=== PATIENT | male | born 1975 | race Caucasian/White ===

== ENCOUNTER 2019-12-14 17:19 | Outpatient (REF) | payer OTHER, SELFPAY | END 2019-12-14 17:20 | disposition home or self-care (01) | LOC: HO.LAB 17:19 | PROVIDERS: PCP Nurse Practitioner Family; Visit Provider Internal Medicine | DX: Z20.828 Contact with and (suspected) exposure to other viral communicable diseases (principal) | CPT/HCPCS: 87635 ==

== ENCOUNTER 2020-05-26 10:12 | Outpatient (REF) | payer OTHER, SELFPAY ==
[2020-05-26 11:10] LABS: MANUAL DIFF FLAG NO
[2020-05-26 11:16] LABS: Basophils Percent Auto 0.5 % (0-2); Eosinophils Absolute Auto 0.2 X10*3/uL (0.0-0.4); Eosinophils Percent Auto 2.6 % (0-4); Hemoglobin 16.7 g/dl (14.0-18.0); Imm Gran Abs Auto 0.02 X10*3/uL (0.00-0.03); Imm Gran Pct Auto 0.3 % (0.0-0.4); Lymphocytes Absolute Auto 1.5 X10*3/uL (1.2-4.9); Lymphocytes Percent Auto 25.3 % (20-40); Mean Corpuscular HGB Conc 33.4 g/dl (31.0-36.0); Mean Corpuscular Hemoglobin 29.5 pg (27.0-33.0); Mean Corpuscular Volume 88.3 fL (80-98); Mean Platelet Volume 10.5 fL (9.4-12.4); Monocytes Absolute Auto 0.6 X10*3/uL (0.1-1.2); Monocytes Percent Auto 9.2 % (2-11); Neutrophils Absolute Auto 3.8 X10*3/uL (2.0-8.3); Neutrophils Percent Auto 62.1 % (45-73); Platelet Count 283 X10*3/uL (160-400); Red Blood Count 5.66 X10*6/uL (4.60-5.80); Red Cell Distribution Width 11.9 % (11.0-16.0); White Blood Count 6.1 X10*3/uL (4.8-10.8)
[2020-05-26 11:44] LABS: Alanine Aminotransferase 30 U/L (0-40); Albumin Level 4.1 g/dL (3.5-5.0); Alkaline Phosphatase 99 U/L (39-117); Anion Gap 14 (12-20); Aspartate Amino Transferase 20 U/L (5-37); Bilirubin Total 0.6 mg/dL (0.0-1.0); Blood Urea Nitrogen 13 mg/dL (9-16); Carbon Dioxide 28 mmol/L (22-29); Chloride 105 mmol/L (96-108); Estimated Glomerular Filt Rate > 60; Glucose Fasting 84 mg/dL (60-99); Lipase 19 U/L (8-78); Potassium 4.6 mmol/L (3.3-5.1); Sodium 142 mmol/L (135-145); Total Protein 6.6 g/dL (6.5-8.0)
== END 2020-05-26 10:13 | disposition home or self-care (01) ==
LOC: HO.HMGCLDS 10:12
PROVIDERS: PCP Nurse Practitioner Family; Visit Provider Hospitalist
DX: R10.11 Right upper quadrant pain (principal)
CPT/HCPCS: 36415; 80053; 83690; 85025

== ENCOUNTER 2020-05-31 09:38 | Outpatient (REF) | payer OTHER, SELFPAY ==
--- NOTE | ~2020-05-31 | US_ITS ---
EXAMINATION: US ABDOMEN LIMITED CLINICAL INFORMATION: Right upper quadrant pain. COMPARISON: None TECHNIQUE: Real-time imaging of the right upper quadrant abdominal viscera. FINDINGS: PANCREAS: The pancreas is homogeneous in echotexture. LIVER: The liver is normal in size. The liver contour is normal. The liver is mildly heterogenous. No focal hepatic lesion. There is no intrahepatic biliary duct dilatation seen. GALLBLADDER: Normal. The gallbladder is physiologically distended without evidence of stones, sludge, polyps, wall thickening or pericholecystic fluid. COMMON BILE DUCT: Normal in caliber measuring 0.39 cm in diameter. RIGHT KIDNEY: Normal. No hydronephrosis. No renal calculi or focal parenchymal lesions. The kidney measures 11.0 cm in maximum dimension. FREE FLUID: None. US/US abdomen limited IMPRESSION: Mildly heterogeneous liver without any focal lesion. The visualized pancreas, gallbladder, CBD, and the right kidney are unremarkable.
== END 2020-05-31 09:39 | disposition home or self-care (01) ==
LOC: HO.HMGCX 09:38
PROVIDERS: Visit Provider Hospitalist
DX: R10.11 Right upper quadrant pain (principal)
CPT/HCPCS: 76705

== ENCOUNTER → 2020-06-08 10:38 | Outpatient (REF) | payer OTHER, SELFPAY ==
--- NOTE | ~2020-06-08 | NM_ITS ---
EXAMINATION: HIDA SCAN WITH CCK CLINICAL INFORMATION: Right upper quadrant pain. COMPARISON: Ultrasound 05/31/2020. TECHNIQUE: 5 mCi technetium mebrofenin and 1.8 mcg CCK given after one hour. Images obtained over the upper abdomen. FINDINGS: Uptake by the liver is felt to be within normal limits. Ductal activity by 11 minutes. Bowel activity by 14 minutes. Gallbladder activity by 39 minutes. Subsequent injection of CCK demonstrates an ejection fraction of 69%. NM/NM hepatobiliary w pharm IMPRESSION: Gallbladder ejection fraction at 69%. Therefore no scintigraphic evidence for gallbladder dyskinesis.
== END ==
LOC: HO.NUCMED 10:38
PROVIDERS: Visit Provider Hospitalist
DX: R10.11 Right upper quadrant pain (principal)
CPT/HCPCS: 78227; A9537; J2805

== ENCOUNTER 2020-06-26 11:30 | Emergency (ER) | payer OTHER, SELFPAY ==
--- NOTE | ~2020-06-26 | CT_ITS ---
EXAMINATION: CT ABDOMEN AND PELVIS WITH CONTRAST CLINICAL INFORMATION: Diffuse abdominal pain. Diarrhea. COMPARISON: None. TECHNIQUE: Contiguous axial thin section helical images of the abdomen and pelvis were performed following the administration of 85 mL of intravenous Omnipaque 350. The data set was reformatted in the coronal and sagittal planes and reviewed on an independent workstation. DLP: 625 mGy-cm. FINDINGS: There is mild dependent bibasilar atelectasis. The visualized lung bases are otherwise clear. The visualized portions of the heart are unremarkable. The liver is of normal size and attenuation without focal lesions nor intrahepatic biliary ductal dilation. A normal gallbladder is identified. There is no wall thickening or discernible pericholecystic fluid. The spleen, pancreas, adrenal glands are unremarkable. Both kidneys are of normal size and attenuation without hydronephrosis or nephrolithiasis. Following the administration of IV contrast, prompt symmetric nephrograms are displayed. There is no abdominal free fluid. There is neither mesenteric nor retroperitoneal lymphadenopathy. Normal unopacified loops of small and large bowel are identified. A normal appendix is identified. There is no pelvic free fluid. The urinary bladder is unremarkable. There is neither pelvic nor inguinal lymphadenopathy. Bone windows: Neither sclerotic nor lytic bone lesions are identified. CT/CT abdomen pelvis w con IMPRESSION: No acute abdominal or pelvic inflammatory or infectious processes. Automated exposure control (Care Dose) Adjustment of the mA and/or kv according to patient size (this includes techniques or standardized protocols for targeted exams where dose is matched to indication / reason for exam; i.e. extremities or head).
[2020-06-26 11:51] VITALS: BP 141/92; PULSE 68; RESP 18; TEMP 36.7; O2SAT 99; BMI 25.7
--- NOTE | 2020-06-26 12:24 | ED_ITS ---
HPI - Abdominal Pain General Chief Complaint: Abdominal Pain Stated Complaint: abd pain Time Seen by Provider: 06/26/20 12:12 Source: patient Mode of arrival: ambulatory Limitations: no limitations History of Present Illness HPI narrative: 44-year-old male previously healthy here with intermittent abdominal pain for the last 3-4 weeks. Patient tells me that his pain comes and goes and is not worsened by eating. He has suffered with chronic diarrhea after eating greasy or fatty foods but he does not have diarrhea associated with this abdominal pain. No nausea or vomiting, fevers, chills, urinary symptoms. He was seen at urgent care on May 31 and had an abdominal ultrasound due to complaints of right upper abdominal pain. This was negative for acute coli. Due to persistent pain he had an outpatient HIDA scan on June 08 which was also negative for acute coli. Since then the patient tells me that his abdominal pain seems more diffuse. Today it was quite severe and so he went back to urgent care and was referred to the emergency department for further evaluation. He denies bloody or black st ools. elicited complaint: abdominal pain Related Data Previous Rx's Medication Instructions Recorded dextroamphetamine-amphetamine ER 10 mg PO DAILY 30 Days #30 cap 02/04/20 10 mg 24hr capsule,extend release dicyclomine 10 mg PO TID PRN #10 cap 06/26/20 Allergies Allergy/AdvReac Type Severity Reaction Status Date / Time No Known Allergies Allergy Verified 06/26/20 11:51 Review of Systems Review of Systems Yes all other systems are reviewed and are negative Constitutional: Reports no additional constitutional complaints, Denies body ache(s), Denies chills, Denies fever(s), Denies headache(s) and Denies weakness Eyes: Reports no additional eye complaints and Denies change in vision Reports system reviewed and no additional complaints, except as documented, Denies dizziness, Denies headache(s), Denies nasal congestion, Denies nasal discharge and Denies neck pain Cardiovascular: Reports no additional cardiovascular complaints, Denies chest pain, Denies leg edema and Denies dyspnea Respiratory: Reports no additional respiratory complaints, Denies cough and Denies dyspnea Gastrointestinal: Reports no additional gastrointestinal complaints, Reports abdominal pain, Denies diarrhea, Denies nausea and Denies vomiting Genitourinary: Denies urinary incontinence Musculoskeletal: Reports no additional musculoskeletal complaints, Denies back pain, Denies arthralgias, Denies joint swelling, Denies neck pain, Denies numbness and Denies tingling Skin/Breast: Reports system reviewed and no additional complaints, except as docu and Denies rash Reports system reviewed and no additional complaints, except as documented, Denies Abnormal speech present, Denies dizziness, Denies headache(s), Denies numbness, Denies tingling and Denies weakness Physical Exam Vital Signs: Vital Signs: Last Vital Signs Temp 97.6 F 06/26/20 12:43 Pulse 58 06/26/20 12:43 Resp 18 06/26/20 12:43 BP 134/85 06/26/20 12:43 Pulse Ox 98 06/26/20 12:43 Body Mass Index 25.7 Const: General: cooperative, healthy appearing, comfortable and no acute distress Orientation/consciousness: patient oriented x3 Limitations: no li mitations HENMT: Head: Yes normal to inspection Ears: hearing grossly normal bilaterally General nose exam: Normal external nose present Face and sinus: Yes normal facial exam Mouth: Normal oral and palatal mucosa present Throat: Yes posterior oropharynx normal Eyes: General: appearance normal, both eyes and all related structures Pupils: Equal, round and reactive pupils present Neck: Neck: Yes normal visual inspection Chest: Chest palpation & inspection: normal inspection of the chest Resp: Effort & Inspection: normal respiratory effort Auscultation: clear to auscultation bilaterally Cardio: Rate: regular rate Rhythm: regular rhythm Peripheral pulses: Peripheral pulses 2+ throughout GI: Inspection: Yes normal to inspection Palpation (GI): Soft to palpation and Tenderness to palpation present (GI) (Moderate diffuse tenderness. No rebound. Positive guarding) Auscultation: normal bowel sounds Back/Spine/Pelvis: Thoracic/Lumbar Spine: thoracic and lumbar spine normal to inspection Skin: General skin exam: no rashes or lesions noted Neuro: General: patient oriented x3, no focal motor deficits and normal sensation to monofilament Cranial nerves: Yes Equal, round and reactive p upils present Cognition (Neuro): normal cognition Speech: No Abnormal speech present Gait exam (Neuro): Normal gait present Motor exam (neuro): 5/5 motor strength present throughout Extrem: General: Yes normal to inspection Course Course Course Narrative: 44 yo intermittent abdominal pain for greater than 4 weeks with intermittent diarrhea. Worked up outpatient with abdominal ultrasound which was negative and a HIDA scan which was negative. Patient tells me he initially had pain more in the right abdomen but now seems to be more diffuse. No associated nausea, vomiting, fevers, chills, bloody diarrhea. On exam has mild-diffuse mod tenderness with no rebound or guarding. Will check labs, UA, CT a/P. 1530-labs, urine and CT unremarkable. Patient has had this pain for greater than 4 weeks with associated diarrhea. ?underlying IBS component. He is feeling improved and is tolerating p.o. when I reexamined him. We discussed referral to GI for further imaging/w/u as deemed appropriate. Reviewed worrisome signs and symptoms of when to return to the emergency department including severe abdominal pain, to a more vomiting episodes, bloody diarrhea. Comfortable discharge home. MDM - Abdominal Pain Medical Records Attestation: I reviewed the patient's medical records. Lab Data Attestation: I reviewed the patient's lab results. Result diagrams: 06/26/20 12:48 06/26/20 12:48 Labs: Lab Results 06/26/20 06/26/20 06/26/20 Range/Units 12:12 12:48 12:48 WBC 5.4 (4.8-10.8) X10*3/uL RBC 5.33 (4.60-5.80) X10*6/uL Hgb 16.0 (14.0-18.0) g/dl Hct 46.8 (42-52) % MCV 87.8 (80-98) fL MCH 30.0 (27.0-33.0) pg MCHC 34.2 (31.0-36.0) g/dl RDW 12.0 (11.0-16.0) % Plt Count 241 (160-400) X10*3/uL MPV 10.2 (9.4-12.4) fL Immature Gran % (Auto) 0.4 (0.0-0.4) % Neut % (Auto) 61.6 (45-73) % Lymph % (Auto) 24.5 (20-40) % [place] % (Auto) 9.0 (2-11) % Eos % (Auto) 3.9 (0-4) % Baso % (Auto) 0.6 (0-2) % Lymph # (Auto) 1.3 (1.2-4.9) X10*3/uL [place] # (Auto) 0.5 (0.1-1.2) X10*3/uL Eos # (Auto) 0.2 (0.0-0.4) X10*3/uL Baso # (Auto) 0.0 (0.0-0.2) X10*3/uL Abs Immat Gran (auto) 0.02 (0.00-0.03) X10*3/uL Absolute Neuts (auto) 3.3 (2.0-8.3) X10*3/uL Absolute Nucleated RBC 0.000 (0.0-0.012) X10*3/uL Nucleated RBC % (auto) 0.0 (0.0-0.2) /100WBC PT 11.9 (10.8-13.0) SEC INR 1.0 (0.9-1.1) Sodium (135-145) mmol/L Potassium (3.3-5.1) mmol/L Chloride (96-108) mmol/L Carbon Dioxide (22-29) mmol/L Anion Gap (12-20) BUN (9-16) mg/dL Creatinine (0.5-1.4) mg/dL Estim Creat Clear Calc Estimated GFR Random Glucose (60-115) mg/dL Calcium (8.4-10.2) mg/dL Magnesium (1.6-2.6) mg/dL Total Bilirubin (0.0-1.0) mg/dL Direct Bilirubin (0.0-0.5) mg/dL AST (5-37) U/L ALT (0-40) U/L Alkaline Phosphatase (39-117) U/L Total Protein (6.5-8.0) g/dL Albumin (3.5-5.0) g/dL Lipase (8-78) U/L Urine Color YELLOW Urine Appearance CLEAR Urine pH 6.0 (5.0-8.0) Ur Specific [place] 1.025 (1.005-1.025) Urine Protein NEG (NEG-TRACE) MG/DL Urine Glucose (UA) NEG (NEG) MG/DL Urine Ketones NEG (NEG) MG/DL Urine Blood NEG (NEG) Urine Nitrite NEG (NEG) Ur Leukocyte Esterase NEG (NEG) 04/26/21 Range/Units 12:48 WBC (4.8-10.8) X10*3/uL RBC (4.60-5.80) X10*6/uL Hgb (14.0-18.0) g/dl Hct (42-52) % MCV (80-98) fL MCH (27.0-33.0) pg MCHC (31.0-36.0) g/dl RDW (11.0-16.0) % Plt Count (160-400) X10*3/uL MPV (9.4-12.4) fL Immature Gran % (Auto) (0.0-0.4) % Neut % (Auto) (45-73) % Lymph % (Auto) (20-40) % [place] % (Auto) (2-11) % Eos % (Auto) (0-4) % Baso % (Auto) (0-2) % Lymph # (Auto) (1.2-4.9) X10*3/uL [place] # (Auto) (0.1-1.2) X10*3/uL Eos # (Auto) (0.0-0.4) X10*3/uL Baso # (Auto) (0.0-0.2) X10*3/uL Abs Immat Gran (auto) (0.00-0.03) X10*3/uL Absolute Neuts (auto) (2.0-8.3) X10*3/uL Absolute Nucleated RBC (0.0-0.012) X10*3/uL Nucleated RBC % (auto) (0.0-0.2) /100WBC PT (10.8-13.0) SEC INR (0.9-1.1) Sodium 138 (135-145) mmol/L Potassium 4.1 (3.3-5.1) mmol/L Chloride 104 (96-108) mmol/L Carbon Dioxide 28 (22-29) mmol/L Anion Gap 10 L (12-20) BUN 15 (9-16) mg/dL Creatinine 1.10 (0.5-1.4) mg/dL Estim Creat Clear Calc 98.8 Estimated GFR > 60 Random Glucose 93 (60-115) mg/dL Calcium 8.7 (8.4-10.2) mg/dL Magnesium 2.2 (1.6-2.6) mg/dL Total Bilirubin 0.6 (0.0-1.0) mg/dL Direct Bilirubin 0.2 (0.0-0.5) mg/dL AST 23 (5-37) U/L ALT 37 (0-40) U/L Alkaline Phosphatase 101 (39-117) U/L Total Protein 6.1 L (6.5-8.0) g/dL Albumin 3.8 (3.5-5.0) g/dL Lipase 25 (8-78) U/L Urine Color Urine Appearance Urine pH (5.0-8.0) Ur Specific [place] (1.005-1.025) Urine Protein (NEG-TRACE) MG/DL Urine Glucose (UA) (NEG) MG/DL Urine Ketones (NEG) MG/DL Urine Blood (NEG) Urine Nitrite (NEG) Ur Leukocyte Esterase (NEG) Imaging Data CT scan - abdomen: Attestation: I personally reviewed and interpreted this imaging study as follows: Radiologist's impression: EXAMINATION: CT ABDOMEN AND PELVIS WITH CONTRAST CLINICAL INFORMATION: Diffuse abdominal pain. Diarrhea. COMPARISON: None. TECHNIQUE: Contiguous axial thin section helical images of the abdomen and pelvis were performed following the administration of 85 mL of intravenous Omnipaque 350. The data set was reformatted in the coronal and sagittal planes and reviewed on an independent workstation. DLP: 625 mGy-cm. FINDINGS: There is mild dependent bibasilar atelectasis. The visualized lung bases are otherwise clear. The visualized portions of the heart are unremarkable. The liver is of normal size and attenuation without focal lesions nor intrahepatic biliary ductal dilation. A normal gallbladder is identified. There is no wall thickening or discernible pericholecystic fluid. The spleen, pancreas, adrenal glands are unremarkable. Both kidneys are of normal size and attenuation without hydronephrosis or nephrolithiasis. Following the administration of IV contrast, prompt symmetric nephrograms are displayed. There is no abdominal free fluid. There is neither mesenteric nor retroperitoneal lymphadenopathy. Normal unopacified loops of small and large bowel are identified. A normal appendix is identified. There is no pelvic free fluid. The urinary bladder is unremarkable. There is neither pelvic nor inguinal lymphadenopathy. Bone windows: Neither sclerotic nor lytic bone lesions are identified. CT/CT abdomen pelvis w con IMPRESSION: No acute abdominal or pelvic inflammatory or infectious processes. Automated exposure control (Care Dose) Adjustment of the mA and/or kv according to patient size (this includes techniques or standardized protocols for targeted exams where dose is matched to indication / reason for exam; i.e. extremities or head). Discharge Plan Discharge Clinical Impression: Abdominal pain Qualifiers: Abdominal location: generalized Qualified Code(s): R10.84 - Generalized abdominal pain Patient Disposition: Home, Self-Care Instructions: Abdominal Pain (ED) Additional Instructions: Your CT scan today showed no acute finding Follow up with GI as discussed Prescriptions: New dicyclomine 10 mg capsule 10 mg PO TID PRN (Reason: muscle spasm) Qty: 10 RF: 0 No Action dextroamphetamine-amphetamine [Adderall XR] 10 mg capsule,extended release 2 4hr 10 mg PO DAILY 30 Days Qty: 30 RF: 0 Referrals: Rachel Blue MD [Physician] - 2 days Stand Alone Forms: Work/School Release [facility] Past Medical History Attestation statement: The following information was validated with the patient. Source: old records reviewed and nursing notes reviewed Medical History ADHD Social History Social History Advance Directives: No Advance Directives Information Provided: No
[2020-06-26 12:38] LABS: Glucose Urine UA NEG (NEG); Leukocyte Esterase Urine NEG (NEG); Nitrite Urine NEG (NEG); Specific Gravity - Urine 1.025 (1.005-1.025); Urine Blood NEG (NEG); Urine Ketones NEG (NEG); Urine Protein NEG (NEG-TRACE)
[2020-06-26 12:39] LABS: Appearance Urine CLEAR; Color Urine YELLOW
[2020-06-26 12:43] VITALS: BP 134/85; PULSE 58; RESP 18; TEMP 36.4; O2SAT 98
[2020-06-26 12:53] LABS: MANUAL DIFF FLAG NO
[2020-06-26 12:55] LABS: Basophils Percent Auto 0.6 % (0-2); Eosinophils Absolute Auto 0.2 X10*3/uL (0.0-0.4); Eosinophils Percent Auto 3.9 % (0-4); Hematocrit 46.8 % (42-52); Imm Gran Abs Auto 0.02 X10*3/uL (0.00-0.03); Imm Gran Pct Auto 0.4 % (0.0-0.4); Lymphocytes Absolute Auto 1.3 X10*3/uL (1.2-4.9); Lymphocytes Percent Auto 24.5 % (20-40); Mean Corpuscular HGB Conc 34.2 g/dl (31.0-36.0); Mean Corpuscular Volume 87.8 fL (80-98); Mean Platelet Volume 10.2 fL (9.4-12.4); Monocytes Absolute Auto 0.5 X10*3/uL (0.1-1.2); Neutrophils Absolute Auto 3.3 X10*3/uL (2.0-8.3); Neutrophils Percent Auto 61.6 % (45-73); Platelet Count 241 X10*3/uL (160-400); Red Blood Count 5.33 X10*6/uL (4.60-5.80); White Blood Count 5.4 X10*3/uL (4.8-10.8)
[2020-06-26] MEDS: Morphine Sulfate 4 MG/ML CARTRIDGE IVPUSH (12:59)
[2020-06-26 13:01] LABS: Prothrombin Time 11.9 SEC (10.8-13.0)
[2020-06-26 13:21] LABS: Alanine Aminotransferase 37 U/L (0-40); Albumin Level 3.8 g/dL (3.5-5.0); Alkaline Phosphatase 101 U/L (39-117); Anion Gap 10 (12-20); Aspartate Amino Transferase 23 U/L (5-37); Bilirubin Direct 0.2 mg/dL (0.0-0.5); Bilirubin Total 0.6 mg/dL (0.0-1.0); Blood Urea Nitrogen 15 mg/dL (9-16); Calcium 8.7 mg/dL (8.4-10.2); Carbon Dioxide 28 mmol/L (22-29); Chloride 104 mmol/L (96-108); Creatinine Clr Calc Pharmacy 98.8; Estimated Glomerular Filt Rate > 60; Glucose Random 93 mg/dL (60-115); Lipase 25 U/L (8-78); Magnesium 2.2 mg/dL (1.6-2.6); Potassium 4.1 mmol/L (3.3-5.1); Sodium 138 mmol/L (135-145); Total Protein 6.1 g/dL (6.5-8.0)
[2020-06-26] MEDS: iohexoL 350 MG/ML 100 ML INFUS..BTL IV (14:50)
== END 2020-06-26 16:01 | disposition home or self-care (01) ==
PROVIDERS: Nurse Practitioner Family; Emergency Provider Emergency Medicine; PCP Nurse Practitioner Family
DX: R10.84 Generalized abdominal pain (principal)
CPT/HCPCS: 36415; 74177; 80048; 80076; 81003; 83690; 83735; 85025; 85610; 96374; 99283; 99284; J2270; Q9967

== ENCOUNTER → 2020-07-12 10:48 | Outpatient (BNVA) | payer OTHER, SELFPAY | PROVIDERS: PCP Nurse Practitioner Family; Visit Provider Surgery ==

== ENCOUNTER 2020-08-03 08:56 | Outpatient (REF) | payer OTHER, SELFPAY ==
[2020-08-03 11:16] LABS: C Reactive Protein 0.24 mg/dL (< or = 0.50)
[2020-08-03 12:34] LABS: Erythrocyte Sedimentation Rate 2 MM/HR (0-15)
[2020-08-08 13:32] LABS: Transglutaminase Ab IgG 1 U/mL; Transglutaminase IgA 66 U/mL
== END 2020-08-03 08:57 | disposition home or self-care (01) ==
LOC: HO.LAB 08:56
PROVIDERS: PCP Nurse Practitioner Family; Referring Provider Nurse Practitioner Family; Visit Provider Nurse Practitioner Family
DX: R10.9 Unspecified abdominal pain (principal); K58.9 Irritable bowel syndrome, unspecified
CPT/HCPCS: 36415; 83516; 85652; 86140

== ENCOUNTER → 2020-08-17 10:23 | Outpatient (BNVA) | payer OTHER, SELFPAY | PROVIDERS: PCP Nurse Practitioner Family; Visit Provider Nurse Practitioner Family ==

== ENCOUNTER 2020-09-14 10:01 | Day surgery (SDC) | payer OTHER, SELFPAY ==
--- NOTE | 2020-09-13 09:40 | P.CONAN_ITS ---
Documented by User: Ruby Polanconey 09/13/20 09:41 HPI - Anesthesia Eval Consult details Narrative: 44yo M for Colonoscopy PMFSH Active Problems Active Problems: All Active Problems (Updated 08/17/20 @ 11:15 by Edith Espinosa [facility]) Celiac disease (Acute) Chronic abdominal pain (Acute) Abdominal pain (Acute) Right upper quadrant abdominal pain (Acute) Lower abdominal pain (Acute) Past Medical History Medical History ADHD Celiac disease Chronic abdominal pain Social History Social History Alcohol intake: current Alcohol intake frequency: holidays/special occasions only Patient Tobacco Use Status: Never used Tobacco Use of substances other than those prescribed or required for medical reasons: No Have you been hit, kicked, punched, or otherwise hurt by someone within the past year? If so, by whom?: No Are you DNR?: No Advance Directives: No Advance Directives Information Provided: Yes Recently lost weight without trying: No Nutrition Risks: No Nutritional Risk Meds Allergies Allergy/AdvReac Type Severity Reaction Status Date / Time No Known Allergies Allergy Verified 08/17/20 10:32 Exam Exam Date and Time: September 13, 2020 0940 Assessment and Plan Assessment Anesthesia Assessment: Chart Reviewed Documented by User: Miquel Thomson MD 09/14/20 10:25 PMFSH Past Medical History Medical History ADHD Celiac disease Chronic abdominal pain Social History Social History Alcohol intake: current Alcohol intake frequency: holidays/special occasions only Patient Tobacco Use Status: Never used Tobacco Use of substances other than those prescribed or required for medical reasons: No Have you been hit, kicked, punched, or otherwise hurt by someone within the past year? If so, by whom?: No Are you DNR?: No Advance Directives: No Advance Directives Information Provided: Yes Recently lost weight without trying: No Nutrition Risks: No Nutritional Risk Meds Allergies Allergy/AdvReac Type Severity Reaction Status Date / Time No Known Allergies Allergy Verified 08/17/20 10:32 Exam Airway Mallampati Class: I TM Dist: >3cm Neck ROM: Full Heart: RRR Assessment and Plan Assessment Anesthesia Assessment: Anesthesia Plan Discussed and Chart Reviewed Final Anesthetic Review NPO: Yes ASA Class: II Final Preanesthetic Review: No Changes in Pt Med Stat, Meds/Allgs Chart Reviewed, Consent Obtained/Reviewed and Anes Risks/Benef Reviewed Patient Risk: Low Procedure Risk: Low Anesthetic Plan Anesthetic Plan: MAC: Disposition: Standard PACU
[2020-09-14 10:11] VITALS: BP 140/90; PULSE 92; RESP 20; TEMP 36.9; O2SAT 98; BMI 24.5
[2020-09-14] MEDS: Lactated Ringers 1,000 ML 100 ML IVCONT (10:23)
--- NOTE | 2020-09-14 11:10 | MHC.SHP ---
Pre-Procedural Eval Section A Date of Service: 09/14/20 Section B Chief Complaint: Change in Bowel Habit Relevant Family History (Specify if Yes): No Relevant Social History: None Present Medications: see Short Stay Collaborative assessment Medical History: Significant History (ADHD Celiac disease Chronic abdominal pain) History of Previous Operations: No relevant previous surgery Allergies: Allergies Allergy/AdvReac Type Severity Reaction Status Date / Time No Known Allergies Allergy Verified 08/17/20 10:32 Review of Systems Sugical H&P ROS: Negative: Constitution, Cardiovascular, Respiratory, Neurological, Psychiatric, Hem-Onc, Allergic/Immunologic, Gastrointestinal, Genitourinary, Musculoskeletal, Integumentary, Endocrine and Eyes/Ears/Nose/Throat Exam Surgical H&P Exam: Normal: HEENT, Normal: Heart, Normal: Lungs, Normal: Extremities, Normal: Abdomen, Normal: Skin and Normal: Neurological Plan Diagnosis/Plan: Unchanged I have reviewed the history and physical and performed a pertinent physical examination on my patient. No changes have occurred unless specified.
--- NOTE | 2020-09-14 11:11 | P.OP_ITS ---
Operative Note Operative Note Date of Service: 09/14/20 Narrative: Operative Information Procedure Description: Colonoscopy COLONOSCOPY Instrument: Olympus variable stiffness pediatric scope 190L Colonoscopy Monitoring: Vital signs and clinical assessment, continuous EKG monitoring, Pulse oximetry, Carbon Dioxide monitoring and blood pressure monitoring were done throughout the procedure. Colon withdrawal time was 10 minutes. Procedure: The patient was placed in the left lateral decubitis position and pre-procedure medications were administered. After a digital rectal examination of the ano-rectum, the video colonoscope was inserted into the rectum and advanced through the colon to the cecum/TI. The colonoscope was slowly withdrawn in a retrograde panoramic fashion and the colon mucosa was carefully examined including a retroflexed view of the rectum. Findings and interventions are described below. Procedure Difficulty: moderate Findings: Terminal Ileum-unable to intubate due to angulation of TI Random colon bx taken Cecum:normal Ascending Colon: normal Transverse Colon -normal Descending Colon:normal Sigmoid Colon: normal Rectum: Retroflexion with small internal hemorrhoids, grade I Anorectum - normal Colon preparation: [place] Bowel Preparation Scale Right colon; 1 Transverse colon: 2 Left colon; 3 (0 = Unprepared colon segment with mucosa not seen due to solid stool that cannot be cleared. 1 = Portion of mucosa of the colon segment seen, but other areas of the colon segment not well seen due to staining, residual stool and/or opaque liquid. 2 = Minor amount of residual staining, small fragments of stool and/or opaque liquid, but mucosa of colon segment seen well. 3 = Entire mucosa of colon segment seen well with no residual staining, small fragments of stool or opaque liquid) Impression and Post Procedure Diagnosis: internal hemorrhoids Plan: High fiber diet leaflet Avoid straining at stool, epsom salts and sitz bath, anusol supps or cream Repeat Colonoscopy in 5 years due to bowel prep on right side or earlier if clinically indicated recommend EGD after 1 week of gluten challenge Above findings were reviewed with the patient and relevant handouts were provided if indicated.
--- NOTE | 2020-09-14 11:11 | PM.OP ---
Brief Operative Note Date of Service: 09/14/20 Pre-op diagnosis: abn bowel habits Post-op diagnosis: same Procedure: see op note Surgeon: Rachel Blue MD Anesthesia: MAC Was an [employer] used for this Procedure?: No Estimated blood loss (mL): 0 Condition: stable Disposition: PACU
[2020-09-14 11:55] VITALS: BP 119/83; PULSE 80; RESP 16; TEMP 37.4; O2SAT 94
[2020-09-14 12:10] VITALS: BP 113/76; PULSE 68; RESP 17; TEMP 37.1; O2SAT 98
== END 2020-09-14 12:20 | disposition home or self-care (01) ==
PROVIDERS: PCP Nurse Practitioner Family; Visit Provider Internal Medicine Gastroenterology
PROC: 0DJD8ZZ Inspection of Lower Intestinal Tract, Via Natural or Artificial Opening Endoscopic (ICD-10-PCS; CPT 45378; principal; 2020-09-14 11:20)
DX: R19.4 Change in bowel habit (principal); Z83.71 Family history of colonic polyps; K64.0 First degree hemorrhoids; K90.0 Celiac disease; K58.9 Irritable bowel syndrome, unspecified; F90.9 Attention-deficit hyperactivity disorder, unspecified type; Z79.899 Other long term (current) drug therapy
CPT/HCPCS: 45380; 88305

== ENCOUNTER → 2020-10-02 09:23 | Outpatient (BNVA) | payer OTHER, SELFPAY | PROVIDERS: PCP Nurse Practitioner Family; Visit Provider Nurse Practitioner Family ==

== ENCOUNTER 2020-11-01 08:27 | Day surgery (SDC) | payer OTHER, SELFPAY ==
[2020-10-26 14:31] VITALS: BMI 24.7
--- NOTE | 2020-10-31 09:56 | P.CONAN_ITS ---
Documented by User: Ruby Ervin NP 10/31/20 09:57 HPI - Anesthesia Eval Consult details Narrative: 45yo M for Upper Endoscopy [facility] Active Problems Active Problems: All Active Problems (Updated 10/06/20 @ 21:27 by RAZIA Ragland) Right upper quadrant abdominal pain (Acute) Lower abdominal pain (Acute) Abdominal pain (Acute) Celiac disease (Acute) Chronic abdominal pain (Acute) Past Medical History Medical History (Updated 10/06/20 @ 21:27 by RAZIA Ragland) ADHD Celiac disease Chronic abdominal pain Surgical History Surgical History (Updated 10/26/20 @ 14:26 by Jaci Cuellar RN) H/O colonoscopy Social History Social History Alcohol intake: current Alcohol intake frequency: holidays/special occasions only Patient Tobacco Use Status: Never used Tobacco Advance Directives Information Provided: No Meds Allergies Allergy/AdvReac Type Severity Reaction Status Date / Time No Known Allergies Allergy Verified 10/02/20 09:28 Exam Exam Date and Time: October 31, 2020 0956 Height,Weight and Vital Signs: Height 6 ft 1 in Weight 85.275 kg Pertinent Lab Results Pertinent Lab Results: Laboratory Tests 06/26/20 06/26/20 12:48 12:48 WBC 5.4 Hgb 16.0 Hct 46.8 Plt Count 241 Sodium 138 Potassium 4.1 Chloride 104 Carbon Dioxide 28 BUN 15 Creatinine 1.10 Assessment and Plan Assessment Anesthesia Assessment: Chart Reviewed Documented by User: Keri Jurado MD 11/01/20 08:38 [facility] Past Medical History Medical History (Updated 10/06/20 @ 21:27 by RAZIA Ragland) ADHD Celiac disease Chronic abdominal pain Family History Family history of problems with anesthesia: No Surgical History Surgical History (Updated 10/26/20 @ 14:26 by Jaci Cuellar RN) H/O colonoscopy History of Problems with Anesthesia: No Social History Social History Alcohol intake: current Alcohol intake frequency: holidays/special occasions only Patient Tobacco Use Status: Never used Tobacco Advance Directives Information Provided: No Meds Allergies Allergy/AdvReac Type Severity Reaction Status Date / Time No Known Allergies Allergy Verified 10/02/20 09:28 Exam Airway Mallampati Class: I TM Dist: >3cm Neck ROM: Full Heart: rrr Lungs: cta bl Assessment and Plan Assessment Anesthesia Assessment: Anesthesia Plan Discussed and Chart Reviewed Final Anesthetic Review Family History of Problems with Anesthesia: No History of Problems with Anesthesia: No NPO: Yes ASA Class: II Final Preanesthetic Review: No Changes in Pt Med Stat, Meds/Allgs Chart Reviewed and Consent Obtained/Reviewed Patient Risk: Intermediate Procedure Risk: Intermediate Anesthetic Plan Anesthetic Plan: MAC: Disposition: Standard PACU
[2020-11-01 08:35] VITALS: BP 140/98; PULSE 70; RESP 17; TEMP 36.3; O2SAT 97
--- NOTE | 2020-11-01 08:40 | MHC.SHP ---
Pre-Procedural Eval Section A Date of Service: 11/01/20 Section B Chief Complaint: celiac disease Relevant Family History (Specify if Yes): No Relevant Social History: None Present Medications: see Short Stay Collaborative assessment Medical History: Significant History (ADHD Celiac disease Chronic abdominal pain) History of Previous Operations: Relevant previous surgery/procedure and date(s) (H/O colonoscopy) Allergies: Allergies Allergy/AdvReac Type Severity Reaction Status Date / Time No Known Allergies Allergy Verified 10/02/20 09:28 Review of Systems Sugical H&P ROS: Negative: Constitution, Cardiovascular, Respiratory, Neurological, Psychiatric, Hem-Onc, Allergic/Immunologic, Gastrointestinal, Genitourinary, Musculoskeletal, Integumentary, Endocrine and Eyes/Ears/Nose/Throat Exam Surgical H&P Exam: Normal: HEENT, Normal: Heart, Normal: Lungs, Normal: Extremities, Normal: Abdomen, Normal: Skin and Normal: Neurological Plan Diagnosis/Plan: Unchanged I have reviewed the history and physical and performed a pertinent physical examination on my patient. No changes have occurred unless specified.
[2020-11-01] MEDS: Lactated Ringers 1,000 ML 100 ML IVCONT (08:55)
--- NOTE | 2020-11-01 09:37 | PM.OP ---
Brief Operative Note Date of Service: 11/01/20 Pre-op diagnosis: pos celiac serology Post-op diagnosis: same Procedure: see op note Surgeon: Rachel Blue MD Anesthesia: MAC Was an [place] Operator used for this Procedure?: No Estimated blood loss (mL): 0 Condition: stable Disposition: PACU
--- NOTE | 2020-11-01 09:38 | W.PM.OPN ---
Operative Note Operative Note Date of Service: 11/01/20 Narrative: Procedure Description: EGD FLEXIBLE TRANSORAL UPPER GASTROINTESTINAL ENDOSCOPY UPPER ENDOSCOPY Consent: Indications for the procedure and potential complications of bleeding, perforation, reaction to medications and missed diagnosis were discussed with the patient and informed consent was obtained. Instrument: Olympus GIF H 190 J mid size upper endoscope Monitoring: Vital signs and clinical assessment, continuous EKG monitoring, Pulse oximetry, Carbon Dioxide monitoring and blood pressure monitoring were done throughout the procedure. Procedure: The patient was placed in the left lateral decubitis position and pre-procedure medications were administered and a bite block was placed. The endoscope was inserted into the mouth and advanced under direct vision to the third part of duodenum. A careful inspection was made as the upper endoscope was withdrawn including a retroflexed examination of the proximal stomach; Findings and interventions are described below. Findings: Larynx:normal Esophagus: GE junction at 40 cm, diaphragm hiatus at 40 cm, mild LA grade A esophagitis. Stomach: Normal mucosa. Biopsies were obtained. Grade 2 flap valve on retroflexed examination of the cardia. Duodenum: Normal bulb and descending duodenum, bx taken Intervention: Biopsies as noted above Impression/Findings: mild esophagitis PLAN: await bx results
[2020-11-01 09:50] VITALS: BP 117/74; PULSE 66; RESP 16; TEMP 36.1; O2SAT 96
[2020-11-01 10:05] VITALS: BP 121/81; PULSE 54; RESP 16; TEMP 36.2; O2SAT 98
[2020-11-01] MEDS: ondansetron HCL 4 MG/2 ML VIAL IVPUSH (10:05)
[2020-11-01 10:20] VITALS: BP 129/87; PULSE 54; RESP 16; TEMP 36.2; O2SAT 98
== END 2020-11-01 10:48 | disposition home or self-care (01) ==
PROVIDERS: PCP Nurse Practitioner Family; Visit Provider Internal Medicine Gastroenterology
PROC: 0DJ08ZZ Inspection of Upper Intestinal Tract, Via Natural or Artificial Opening Endoscopic (ICD-10-PCS; CPT 43235; principal; 2020-11-01 09:30)
DX: K90.0 Celiac disease (principal); K20.90 Esophagitis, unspecified without bleeding
CPT/HCPCS: 43239; 88305; 88342; J2405

== ENCOUNTER → 2020-11-10 09:32 | Outpatient (BNVA) | payer OTHER, SELFPAY | PROVIDERS: PCP Nurse Practitioner Family; Referring Provider Nurse Practitioner Family; Visit Provider Nurse Practitioner Family ==

== ENCOUNTER 2021-02-21 06:49 | Outpatient (REF) | payer OTHER, SELFPAY | END 2021-02-21 06:50 | disposition home or self-care (01) | LOC: HO.HMGCLDS 06:49 | PROVIDERS: PCP Nurse Practitioner Family; Visit Provider Internal Medicine | DX: Z20.822 Contact with and (suspected) exposure to COVID-19 (principal) | CPT/HCPCS: C9803; U0003; U0005 ==

== ENCOUNTER → 2021-03-09 08:02 | Outpatient (BNVA) | payer OTHER, SELFPAY | PROVIDERS: PCP Nurse Practitioner Family; Referring Provider Nurse Practitioner Family; Visit Provider Nurse Practitioner Family ==

== ENCOUNTER 2022-03-08 08:09 | Outpatient (REF) | payer OTHER, SELFPAY ==
[2022-03-12 14:24] LABS: Transglutaminase IgA 2.6 U/mL
== END 2022-03-08 08:10 | disposition home or self-care (01) ==
LOC: HO.LAB 08:09
PROVIDERS: PCP Nurse Practitioner Family; Referring Provider Nurse Practitioner Family; Visit Provider Nurse Practitioner Family
DX: K90.0 Celiac disease (principal); R10.30 Lower abdominal pain, unspecified
CPT/HCPCS: 36415; 86364

== ENCOUNTER 2022-09-20 13:17 | Outpatient (AMB) | payer OTHER, SELFPAY ==
--- NOTE | 2022-09-20 13:55 | MHC.OFFWIV ---
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 denies congestion. Patient Tobacco Use Status: Never used Tobacco Allergies No Known Allergies Allergy (Verified 09/20/22 13:57) Do you need a note to return to daycare/school/sports/work: No HPI HPI Comments History of Present Illness Details This is a 46-year-old male who presents to the office today for sick visit. Patient reports he had a sinus infection approximately 3-4 months ago, but this was never treated. He states that he has been having intermittent sinus congestion, bilateral otalgia, and sore throat since then. Patient has been having these symptoms for the past 3 days. He denies any fevers or chills. He denies any nasal drainage/discharge. He denies any known sick contacts. [facility] Medical History ADHD Celiac disease Chronic abdominal pain Surgical History H/O colonoscopy Social History Alcohol intake: current Alcohol intake frequency: holidays/special occasions only Patient Tobacco Use Status: Never used Tobacco Review of Systems Const All systems reviewed & are unremarkable except as noted in HPI and below Reports as per HPI, Reports no additional complaints, Denies chills and Denies fever(s) Eyes Reports no additional complaints ENT Reports no additional complaints, Reports otalgia and Reports nasal congestion Card Reports no additional complaints Resp Reports no additional complaints GI Reports no additional complaints Reports no additional complaints Musc Reports no additional complaints Skin/Breast Reports system reviewed and no additional complaints, except as documented Neuro Reports no additional complaints Psych Reports no additional complaints Endo Reports no additional complaints Bear/Lymph Reports no additional complaints Aller/Immun Reports no additional complaints Physical Exam Vital Signs: Last Vital Signs Temp 97.4 F 09/20/22 13:59 Pulse 80 09/20/22 13:59 BP 112/76 09/20/22 13:59 Pulse Ox 98 09/20/22 13:59 Oxygen Delivery Method Room Air 09/20/22 13:59 Const General: cooperative, healthy appearing, comfortable, no acute distress and well developed Orientation/consciousness: patient oriented x3 HEENT Head: Yes normal to inspection Ears: hearing grossly normal bilaterally General nose exam: Normal external nose present Face and sinus: Yes normal facial exam Mouth: Normal oral and palatal mucosa present Throat: Yes posterior oropharynx normal Eyes Pupils: Equal, round and reactive pupils present EOM: EOMs intact bilaterally Resp Effort & Inspection: normal respiratory effort, able to speak in complete sentences and no respiratory distress Cardio Rate: regular rate Skin General skin exam: no rashes or lesions noted Neuro General: patient oriented x3 Cranial nerves: Yes CN's II-XII intact bilaterally and Yes Equal, round and reactive pupils present Gait exam (Neuro): Normal gait present Motor exam (neuro): 5/5 motor strength present throughout Extrem General: Yes normal to inspection Assessment & Plan Assessment & Plan (1) Viral URI: Code(s): J06.9 - Acute upper respiratory infection, unspecified Plan: Patient presenting with signs and symptoms most consistent with acute respiratory tract infection possibly superimposed on possible chronic sinusitis. Recommended symptomatic management including rest, increased fluids, advil/tylenol for pain/fever, and over the counter throat lozenges/decongestants. Patient was also recommended to take antihistamines, but he states he had a bad reaction to antihistamines in the past, so he declines at this time. Patient advised to follow up here or go to the emergency room for worsening/persistent symptoms. Patient should follow-up with his primary care physician for possible ENT referral for evaluation of intermittent sinus congestion possibly indicative of chronic sinusitis. Coding Level of Care Code Est Pt Level 3 (79517) Diagnoses Viral URI J06.9
[2022-09-20 13:59] VITALS: BP 112/76; PULSE 80; TEMP 36.3; O2SAT 98
== END 2022-09-20 14:44 | disposition home or self-care (01) ==
PROVIDERS: PCP Nurse Practitioner Family; Visit Provider Physician Assistant Medical
DX: J06.9 Acute upper respiratory infection, unspecified (principal)
CPT/HCPCS: 99213

== ENCOUNTER 2022-12-09 11:47 | Outpatient (AMB) | payer OTHER, SELFPAY ==
--- NOTE | 2022-12-09 13:23 | MHC.OFFWIV ---
Intake Vital Signs 12/09/22 13:24 Height 6 ft 1 in Weight 183 lb BMI 24.1 BP 110/74 Blood Pressure Location Lt brachial Position Sitting Pulse 75 Pulse Source Pulse Oximeter Pulse Oximetry (%) 99 Oxygen Delivery Method Room Air Intake Visit Reasons: EST/stiff neck for 5 days/[phone] Intake Note: Pt is here today for a walk in visit. Pt c/o stiff neck for 5 days. Patient Tobacco Use Status: Never used Tobacco Allergies No Known Allergies Allergy (Verified 12/09/22 14:17) Medication List - Last Reconciled 12/09/22 by Cameron Burk MD dextroamphetamine-amphetamine 10 mg ER (Adderall XR) 10 mg PO DAILY 30 days Do you need a note to return to daycare/school/sports/work: No HPI EST/stiff neck for 5 days/[phone] HPI Details 47-year-old male presents to the office for a sick visit. Patient is reporting symptoms of neck pain and stiffness. Symptoms present for the past few days. 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 [facility] Medical History ADHD Celiac disease Chronic abdominal pain Surgical History H/O colonoscopy Social History Alcohol intake: current Alcohol intake frequency: holidays/special occasions only Patient Tobacco Use Status: Never used Tobacco Physical Exam Vital Signs: Last Vital Signs Pulse 75 12/09/22 13:24 BP 110/74 12/09/22 13:24 Pulse Ox 99 12/09/22 13:24 Oxygen Delivery Method Room Air 12/09/22 13:24 BMI result Body Mass Index 24.1 Neck Other: Minimal discomfort along the trapezius. Full range of motion with minimal discomfort. 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 Assessment & Plan Assessment & Plan (1) Acute neck sprain: Code(s): S13.9XXA - Sprain of joints and ligaments of unspecified parts of neck, initial encounter Plan: Meloxicam and cyclobenzaprine called in. Patient was advised to use a heating pad. If symptoms do recur improved to follow-up here. Coding Level of Care Code Est Pt Level 3 (07693) Diagnoses Acute neck sprain S13.9XXA
[2022-12-09 13:24] VITALS: BP 110/74; PULSE 75; O2SAT 99; BMI 24.1
== END 2022-12-09 14:45 | disposition home or self-care (01) ==
PROVIDERS: PCP Nurse Practitioner Family; Visit Provider Internal Medicine
DX: S13.9XXA Sprain of joints and ligaments of unspecified parts of neck, initial encounter (principal)
CPT/HCPCS: 99213

== ENCOUNTER 2023-03-07 07:45 | Outpatient (AMB) | payer OTHER, SELFPAY ==
[2023-03-07 07:49] VITALS: BMI 24.8
--- NOTE | 2023-03-07 07:49 | MHC.OFFVIS ---
Intake Vital Signs 03/07/23 07:49 Height 6 ft 1 in Weight 188 lb BMI 24.8 Blood Pressure Location Lt brachial Position Sitting Intake Visit Reasons: 1 year Follow up Intake Note: Patient yearly follow up for celiac disease and lab results. Patient cc: Constipation on and off. 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 Will do transglutaminase IgGA today to check for compliance. Otherwise patient has been doing very well. Patient will find at up on the phone that will help him scan gluten free products to manage it better. Lower abdominal pain Occasional right lower abdominal cramping. Negative exam for appendicitis, cholecystitis. Patient states that this happens only occasionally. It could be due to gas trapping and mild constipation. FODMAP diet discussed with him as well. I will see him in 1 year, however patient was encouraged to call us sooner if he will have any GI concerning symptoms. He is agreeable to this plan and verbalizes understanding of instructions. He was given the opportunity to ask questions and all questions answered. ? Thank you for allowing me to participate in his care Plan Orders Orders Transglutaminase IgA Today R10.9 TODAY'S VISIT Patient is here today for follow-up and to discuss his last lab results. Patient has transglutaminase was 2.6. Patient states that he has been doing well avoiding gluten. Occasionally patient feels that he might eat something that was contaminated with gluten, however he reports that he is trying to be very careful about avoiding it. Patient reports occasional abdominal pain, bloating and constipation. Patient tried MiraLax in the past, however caused diarrhea and more bloating. Patient admits that he eats food that might be contributing to his bloating like cauliflower and fruits. Patient will look at the low FODMAP diet and see if he can follow that again. Patient denies melena, hematochezia, unintentional weight loss or ribbon like stools. His colonoscopy in August of 2020, recommendation was made for patient to return in 5 years. He will be due to go for colonoscopy in August of 2025. Patient denies any dyspepsia, dysphagia or odynophagia. [facility] Medical History ADHD Celiac disease Chronic abdominal pain Surgical History H/O colonoscopy Social History Alcohol intake: current Alcohol intake frequency: holidays/special occasions only Patient Tobacco Use Status: Never used Tobacco Review of Systems Const Denies weight gain and Denies weight loss ENT Reports no additional complaints, Denies dysphagia and Denies odynophagia Card Reports no additional complaints Resp Reports no additional complaints GI Denies abdominal pain, Denies belching, Denies melena, Denies bloating, Denies change in bowel habits, Reports constipation, Denies dysphagia, Denies excessive flatus, Denies dyspepsia, Denies heartburn, Denies diarrhea, Denies loose stools, Denies nausea, Denies odynophagia and Denies vomiting Reports no additional complaints Musc Reports no additional complaints Neuro Reports no additional complaints Psych Reports no additional complaints Endo Reports no additional complaints Physical Exam Vital Signs: BMI result Body Mass Index 24.8 Const General: healthy appearing, no acute distress and well developed Nutritional Appearance: well nourished Orientation/consciousness: patient oriented x3 HEENT Head: Yes normal to inspection, Yes normocephalic and Yes atraumatic Face and sinus: Yes normal facial exam Mouth: Normal oral and palatal mucosa present Throat: Yes posterior oropharynx normal, Yes tonsils normal and Yes uvula midline Eyes General: appearance normal, both eyes and all related structures Neck Neck: Yes normal visual inspection, Yes full ROM and Yes trachea midline Thyroid: Thyroid normal Resp Effort & Inspection: normal respiratory effort, able to speak in complete sentences, no tracheal deviation and symmetric chest movement Auscultation: clear to auscultation bilaterally Cardio Rate: regular rate GI Inspection: Yes normal to inspection and No distended Palpation (GI): Soft to palpation, not firm, nontender and No hepatosplenomegaly present Auscultation: normal bowel sounds General: Yes no CVA tenderness Back/Spine/Pelvis Back: no CVA tenderness Skin General skin exam: elasticity normal, turgor normal and dry skin Neuro General: patient oriented x3 Psych Appearance: grossly normal Mental Status: mental status grossly normal Results Reviewed Results Reviewed: Laboratory Tests 03/08/22 08:46 Tiss Transglutamin IgA 2.6 Assessment & Plan Assessment & Plan (1) Celiac disease: Code(s): K90.0 - Celiac disease (2) Chronic abdominal pain: Code(s): R10.9 - Unspecified abdominal pain; G89.29 - Other chronic pain (3) Constipation: Code(s): K59.00 - Constipation, unspecified Qualifiers: Constipation type: slow transit constipation Qualified Code(s): K59.01 - Slow transit constipation Plan Continue for avoiding gluten. Will send patient for blood work. Will check vitamin B12, vitamin-D, folate, thyroid study. Patient is constipated. CI he encouraged to increase fluid intake and activity to promote better bowel motility. Will start patient on senna. Patient will try to follow FODMAP diet. I will see him in 1 year, sooner on as needed basis. Patient is agreeable to this plan and verbalizes understanding of instructions. He was given the opportunity to ask questions and all questions answered. Thank you for allowing me to participate in his care . Orders: Orders TSH reflex Free T4 Today K59.00 - Constipation, unspecified Vitamin B12 and Folate Today G89.29 - Other chronic pain, K90.0 - Celiac disease, R10.9 - Unspecified abdominal pain Vitamin D 25-OH (D2 and D3) Today E55.9 - Vitamin D deficiency, unspecified Transglutaminase IgA Today K90.0 - Celiac disease Comprehensive Met. Panel Today G89.29 - Other chronic pain, K90.0 - Celiac disease, R10.9 - Unspecified abdominal pain Medications: New sennosides (Natural Senna Laxative) 8.6 mg PO BEDTIME 90 tabs 3RF constipation K59.00 - Constipation, unspecified Coding Level of Care Code Est Pt Level 3 (48150) Diagnoses Celiac disease K90.0 Chronic abdominal pain R10.9; G89.29 Slow transit constipation K59.01 Constipation type: slow transit constipation Time Spent (min) 25 Comment 15 minutes spent with patient and additional 10 minutes spent reviewing his records
== END 2023-03-07 08:25 | disposition home or self-care (01) ==
PROVIDERS: Visit Provider Nurse Practitioner Family
DX: K90.0 Celiac disease (principal)
CPT/HCPCS: 99213

== ENCOUNTER → 2023-03-07 07:45 | Outpatient (BNVA) | payer OTHER, SELFPAY | PROVIDERS: Visit Provider Nurse Practitioner Family ==

== ENCOUNTER 2023-12-06 14:27 | Outpatient (AMB) | payer OTHER, SELFPAY ==
[2023-12-06 14:29] VITALS: BP 122/80; PULSE 78; TEMP 36.6; O2SAT 98; BMI 24.8
--- NOTE | 2023-12-06 14:29 | MHC.OFFWIV ---
Intake Vital Signs 12/06/23 14:29 Height 6 ft 1 in Weight 188 lb BMI 24.8 BP 122/80 Blood Pressure Location Lt brachial Position Sitting Pulse 78 Pulse Source Pulse Oximeter Temp 97.8 F Temp Source Oral Pulse Oximetry (%) 98 Intake Visit Reasons: EP/Back Pain Intake Note: pt is here for back pain Patient Tobacco Use Status: Never used Tobacco Allergies No Known Allergies Allergy (Verified 12/06/23 14:29) Do you need a note to return to daycare/school/sports/work: No HPI EP/Back Pain HPI Details Patient is a 48-year-old male with history of Crohn's who comes to the walk-in clinic complaining of acute onset of mid back pain after pulling a large object just over an hour ago. No report of pain radiating to the upper or lower extremities, numbness weakness or other red flag symptoms. No prior injury to the area. [facility] Medical History ADHD Celiac disease Chronic abdominal pain Surgical History H/O colonoscopy Social History Alcohol intake: current Alcohol intake frequency: holidays/special occasions only Patient Tobacco Use Status: Never used Tobacco Physical Exam Vital Signs: Last Vital Signs Temp 97.8 F 12/06/23 14:29 Pulse 78 12/06/23 14:29 BP 122/80 12/06/23 14:29 Pulse Ox 98 12/06/23 14:29 BMI result Body Mass Index 24.8 Const General: cooperative, healthy appearing, comfortable, no acute distress, alert, awake, Physically active and well groomed; No anxious, diaphoretic, ill appearing, intoxicated appearing, poor hygiene or tired appearing Nutritional Appearance: average body habitus Limitations: no limitations Neck Neck: Yes normal visual inspection, Yes full ROM, Yes no lymphadenopathy, Yes trachea midline, Yes supple and No anterior neck swelling Resp Effort & Inspection: normal respiratory effort Back/Spine/Pelvis Thoracic/Lumbar Spine: thoracic and lumbar spine normal to inspection, thoraco-lumbar ROM normal, No kyphosis, No mass, pain with thoraco-lumbar ROM (tenderness to the left lower thoracic paraspinal with right rotation), paraspinal muscle tenderness on the left greater than right, thoraco-lumbar spasm, No thoracic spinal tenderness and No lumbar spinal tenderness Sacrum: no swelling Skin Other: Good color, warm and dry Psych Appearance: grossly normal Mental Status: mental status grossly normal Speech and movement: Normal speech and movement present Affect: normal affect Attitude: cooperative Thought process: Normal thought process present Insight: Good insight present (Psych) Judgement: Good judgement present (Psych) Assessment & Plan Assessment & Plan (1) Spasm of thoracic back muscle: Code(s): M62.830 - Muscle spasm of back Plan: Patient is a 48-year-old male with history of Crohn's disease who comes to the walk-in clinic with acute thoracic back pain from moving a heavy object. He has a palpable spasm to his left lower thoracic paraspinal muscle, with end range tenderness with rotation to the right. No vertebral tenderness noted, and no radicular symptoms to the extremities. I wrote him for a course of Flexeril that he can use at night, and during the day tomorrow as he will be home. We also discussed icing today, and then heating and stretching in the morning, and frequently throughout the day tomorrow. I also wrote him for a course of naproxen, which she should take with caution due to his Crohn's. He should lower to an addv-dgb-hbjnver dose as soon as he can, and discontinue when symptoms are resolving. He should follow up if back pain persists or worsens. Medications: New cyclobenzaprine can take a second dose, to 10mg three times a day 5 mg PO TID 20 tabs 0RF muscle spasm naproxen 500 mg PO BID 14 days PRN 28 tabs 0RF pain Coding Level of Care Code Est Pt Level 4 (76855) Diagnoses Spasm of thoracic back muscle M62.830
== END 2023-12-06 14:56 | disposition home or self-care (01) ==
PROVIDERS: PCP Nurse Practitioner Family; Visit Provider Physician Assistant Medical
DX: M62.830 Muscle spasm of back (principal)

== ENCOUNTER → 2023-12-06 14:27 | Outpatient (BNVA) | payer OTHER, SELFPAY | PROVIDERS: PCP Nurse Practitioner Family ==

== ENCOUNTER 2024-02-19 14:58 | Outpatient (AMB) | payer OTHER, SELFPAY ==
--- NOTE | 2024-02-19 15:18 | A.OFFPC_ITS ---
Vital Signs 02/19/24 15:29 Height 6 ft 1 in Weight 190 lb BMI 25.1 BP 118/70 Blood Pressure Location Rt brachial Position Sitting Pulse 72 Pulse Source Pulse Oximeter Pulse Oximetry (%) 97 Intake Visit Reasons: re-est care, PE Intake Note: pt is here for PE Allergies No Known Allergies Allergy (Verified 02/19/24 17:51) Medication List - Last Reconciled 02/19/24 by Anil Maria BOOK REVIEWER- dextroamphetamine-amphetamine 10 mg ER (Adderall XR) 10 mg PO DAILY 30 days lorazepam mg PO sennosides (Natural Senna Laxative) 8.6 mg PO BEDTIME Tobacco use date assessed: 02/19/24 Dental Screening Dental Screen Date: 02/19/24 Did you have a dental visit in the last 12 months?: No Did you have a dental problem in the last 6 months where you did not have access to dental care?: No Was dental information given to patient?: Yes HPI re-est care, PE HPI Details History of Present Illness The patient is a 48-year-old male presenting with a large cystic lesion on the scalp. The lesion is located on the top portion of the patient's head and has been identified during a routine examination. It was noted in the current visit and requires surgical intervention. The patient has a past medical history of celiac disease, which was diagnosed previously, and he adheres strictly to a gluten-free diet. The patient ensures his colonoscopy is up to date for health maintenance. The cystic lesion (scalp) is the primary concern at this time, and it has been referred for general surgery evaluation and removal. Health Maintenance - Routine colonoscopy is up to date - Strict adherence to a gluten-free diet due to celiac disease Social History - Dietary modification: Strict gluten-fr ee diet due to celiac disease Review of Systems - Respiratory: Denies shortness of breat h - Cardiovascular: Denies chest pain - Constitutional: Denies fever, chills - Gastrointestinal: Denies nausea, vomit ing, constipation, diarrhea - Neurological: Denies numbness, tinglin g Physical Exam General: Cooperative, healthy appearing, comfortable, no acute distress and well developed Orientation: Patient oriented x3 Limitations: No limitations Head: Large cystic lesion on the top of the head, scalp Ears: Hearing grossly normal bilaterally Nose: Normal external nose present Face and sinus: Normal facial exam Eyes: Appearance normal, both eyes and all related structures Neck: Normal visual inspection and Yes full ROM Respiratory: Normal respiratory effort and able to speak in complete sentences. Clear to auscultation bilaterally Cardiovascular: Regular rate and rhythm. Normal S1 and S2 GI: Normal to inspection. Soft to palpation and nontender Skin: No rashes or lesions noted Neuro: Patient oriented x3 Extremities: Normal to inspection Results Plan - Referral to general surgery for remova l of the large cystic lesion on the scalp - Continue adherence to a gluten-free di et for management of celiac disease Patient was informed and verbally consented to the use of an ambient scribe for clinic note documentation during this visit. Discussion Notes During the visit, I discussed with the patient the necessity of removing the large cystic lesion on the scalp. I have referred him to general surgery for this procedure. We reviewed the patient's adherence to a gluten-free diet due to his history of celiac disease and confirmed that he remains symptom-free at this time. The importance of continuing with regular follow-up for his celiac condition was emphasized. Risks, benefits, and alternatives associated with surgical removal of the lesion were discussed, and the patient expressed understanding and agreement with the plan. Patient Instructions - Follow up with general surgery for rem oval of the scalp lesion - Continue following a strict gluten-flower e diet - Report any new symptoms or concerns re lated to celiac disease or the cyst if they arise. 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 1. Little interest or pleasure in doing things: not at all 2. Feeling down, depressed, or hopeless: not at all 3. Trouble falling or staying asleep, or sleeping too much: not at all 4. Feeling tired or having little energy: not at all 5. Poor appetite or overeating: not at all 6. Feeling bad about yourself - or that you are a failure or have let yourself or your family down: not at all 7. Trouble concentrating on things, such as reading the newspaper or watching television: several days 8. Moving or speaking so slowly that other people could have noticed. Or the opposite - being so fidgety or restless that you have been moving around a lot more than usual: not at all 9. Thoughts that you would be better off or of hurting yourself in some way: not at all Total score: 1 Depression Screening Interpretation: Negative Depression Screening Done: Yes 71508 - PHQ-9 Billing: Yes Source: Developed by Drs. Raman Jarrell, Amisha Hernandez, Raul Hill and colleagues, with an educational marcella from [employer]. Thrive Questionnaire Date Thrive assessed: 02/19/24 I am a: Patient What is your living situation today?: I have a steady place to live Within the past 12 months, did the food you bought not last and you didn't have the money to get more?: Never true Within the past 12 months, did you worry whether your food would run out before you got money to buy more?: Never true Do you have trouble paying for medicines?: Yes Do you have trouble getting transportation to medical appointments?: No Do you have trouble paying your heating and electricity bill?: Yes Do you have trouble taking care of your child, family member or friend?: No Do you have trouble with day-to-day activities such as bathing, preparing meals, shopping, managing finances, etc.?: No Are you currently unemployed and looking for a job?: No Are you interested in more education?: No Please select the resources that you would like help with: None Currently or been in a relationship where the following occur: No concerns reported THRIVE Score: 1 AUDIT C Alcohol Use Questionnaire (AUDIT-C) 1. How often do you have a drink containing alcohol?: 2-4 times a month 2. How many drinks containing alcohol do you have on a typical day when you are drinking?: 3 or 4 3. How often do you have six or more drinks on one occasion?: Less than monthly Total Score: 4 Score Reviewed/Action Taken: Yes BRIDGET-7 AMB Questionnaire BRIDGET-7 Date BRIDGET - 7 assessed: 02/19/24 Feeling nervous, anxious, or on edge: 1 = Several days Not being able to stop or control worryin = Not at all Worrying too much about different things: 1 = Several days Trouble relaxin = Not at all Being so restless that it is hard to sit still: 0 = Not at all Becoming easily annoyed or irritable: 1 = Several days Feeling afraid as if something awful might happen: 0 = Not at all Total BRIDGET-7 score (0-4 normal; 5-9 mild; 10-14 moderate; 15-21 severe): 3 Source: Developed by Drs. Raman Jarrell, Amisha Hernandez, Raul Hill and colleagues, with an educational marcella from [employer]. BRIDGET-7 Assessment Billing BRIDGET-7 Assessment Tool: BRIDGET-7 Assessment 85005 Physical exam (Primary Care) Vital Signs: Last Vital Signs Pulse 72 02/19/24 15:29 BP 118/70 02/19/24 15:29 Pulse Ox 97 02/19/24 15:29 BMI result Body Mass Index 25.1 Tobacco/Smoking Status: Tobacco use Status Tobacco use date assessed 02/19/24 02/19/24 15:33 Patient Tobacco Use Status Never used Tobacco 02/19/24 15:29 e-Cigarette/Vaping Use Never Used 02/19/24 15:33 PHQ-9: PHQ-9 Score PHQ-9: Total score 1 02/19/24 16:02 Depression Screening Interpretation: Negative Thrive Assessment: Date of Thrive Assessment Date Thrive assessed 02/19/24 02/19/24 15:33 Currently or been in a relationship where the following occur: No concerns reported Coding Level of Care Code New Pt Prev Care 40-64y(63807) Diagnoses Physical exam Z00.00 Screening for prostate cancer Z12.5 Scalp cyst L72.9 Additional Codes BRIDGET-7 Assessment Billing - BRIDGET-7 Assessment Tool: BRIDGET-7 Assessment 60757 ([id number]) PHQ-9 - 57742 - PHQ-9 Billing: Yes ([id number]) Assessment & Plan Assessment & Plan (1) Physical exam: Code(s): Z00.00 - Encounter for general adult medical examination without abnormal findings Category: Medical (2) Screening for prostate cancer: Code(s): Z12.5 - Encounter for screening for malignant neoplasm of prostate Category: Medical (3) Scalp cyst: Code(s): L72.9 - Follicular cyst of the skin and subcutaneous tissue, unspecified Category: Medical Plan . Orders: Orders Complete Blood Count Auto Diff Today Z00.00 - Encounter for general adult medical examination without abnormal findings Comprehensive [place]. Panel Fast Today Z00.00 - Encounter for general adult medical examination without abnormal findings Prostate Specific Antigen Scr Today Z12.5 - Encounter for screening for malignant neoplasm of prostate TSH reflex Free T4 Today Z00.00 - Encounter for general adult medical examination without abnormal findings UA CC w/rflx Micro + Cult Today Z00.00 - Encounter for general adult medical examination without abnormal findings Lipid Panel Today Z00.00 - Encounter for general adult medical examination without abnormal findings Referrals General Surgery Referral L72.9 - Follicular cyst of the skin and subcutaneous tissue, unspecified
[2024-02-19 15:29] VITALS: BP 118/70; PULSE 72; O2SAT 97; BMI 25.1
== END 2024-02-19 16:40 | disposition home or self-care (01) ==
PROVIDERS: PCP Nurse Practitioner Family; Visit Provider Nurse Practitioner Family
DX: Z00.00 Encounter for general adult medical examination without abnormal findings (principal); Z12.5 Encounter for screening for malignant neoplasm of prostate; L72.9 Follicular cyst of the skin and subcutaneous tissue, unspecified

== ENCOUNTER → 2024-02-19 14:58 | Outpatient (BNVA) | payer OTHER, SELFPAY | PROVIDERS: PCP Nurse Practitioner Family; Visit Provider Nurse Practitioner Family | DX: Z00.00 Encounter for general adult medical examination without abnormal findings (principal); L72.9 Follicular cyst of the skin and subcutaneous tissue, unspecified | CPT/HCPCS: 96127 ==

== ENCOUNTER 2024-03-05 07:42 | Outpatient (AMB) | payer OTHER, SELFPAY ==
--- NOTE | 2024-03-05 08:06 | MHC.OFFVIS ---
Vital Signs 03/05/24 08:11 Height 6 ft 1 in Weight 194 lb 7.163 oz BMI 25.7 BP 140/86 H Blood Pressure Location Rt brachial Position Sitting Pulse 60 Pulse Source Pulse Oximeter Pulse Oximetry (%) 96 Oxygen Delivery Method Room Air Intake Visit Reasons: 1 year follow up Intake Note: ESTABLISHED PATIENT Reason; scheduled in office 1 YR FUV Changes/concerns? Labs active. Pt called. General abd discomfort. Nausea, bloating. Pharmacy verified? [facility] Allergies No Known Allergies Allergy (Verified 03/05/24 08:07) HPI HPI 1 year follow up: Details: LAST VISIT: Celiac disease Chronic abdominal pain Constipation Plan Continue for avoiding gluten. Will send patient for blood work. Will check vitamin B12, vitamin-D, folate, thyroid study. Patient is constipated. CI he encouraged to increase fluid intake and activity to promote better bowel motility. Will start patient on senna. Patient will try to follow FODMAP diet. I will see him in 1 year, sooner on as needed basis. Patient is agreeable to this plan and verbalizes understanding of instructions. He was given the opportunity to ask questions and all questions answered. ? Thank you for allowing me to participate in his care . Orders Orders TSH reflex Free T4 Today K59.00 Vitamin B12 and Folate Today G89.29, K90.0, R10.9 Vitamin D 25-OH (D2 and D3) Today E55.9 Transglutaminase IgA Today K90.0 Comprehensive Met. Panel Today G89.29, K90.0, R10.9 Medications New sennosides (Natural Senna Laxative) 8.6 mg PO BEDTIME 90 tabs 3RF constipation K59.00 TODAY'S VISIT: Patient is here today for follow-up. Patient reports that he has not been feeling well. Frequent postprandial abdominal bloating and cramping. Cramping associated with bowel movement. Patient reports that he is not aunts feel like he is emptying his bowels completely. Patient reports that sometimes he will have gluten free pizza and will be okay and sometimes he will have pain and bloating. Patient thinks it could be the type of a cheese. Patient reports that sometimes it is hard for him to watch gluten as he has a very busy job and sometimes he just orders a take out and that is when he feels that he will have issues. Patient believes that it is not just the gluten but also maybe dairy. Patient admits that sometimes he will have black stool, denies hematochezia. 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 Current occupational exposures/hazards: No Cognitive needs: No Hearing needs: No Vision needs: No Review of Systems Const Denies weight gain and Denies weight loss ENT Reports no additional complaints, Denies dysphagia and Denies odynophagia Card Reports no additional complaints Resp Reports no additional complaints GI Denies abdominal pain, Denies belching, Denies melena, Denies bloating, Denies change in bowel habits, Denies dysphagia, Denies excessive flatus, Denies dyspepsia, Denies heartburn, Denies diarrhea, Denies loose stools, Denies nausea, Denies odynophagia and Denies vomiting Reports no additional complaints Musc Reports no additional complaints Neuro Reports no additional complaints Psych Reports no additional complaints Endo Reports no additional complaints Physical Exam Const General: healthy appearing, no acute distress and well developed Nutritional Appearance: well nourished Orientation/consciousness: patient oriented x3 Resp Effort & Inspection: normal respiratory effort, able to speak in complete sentences, no tracheal deviation and symmetric chest movement Auscultation: clear to auscultation bilaterally Cardio Rate: regular rate GI Inspection: Yes normal to inspection and No distended Palpation (GI): Soft to palpation, not firm, nontender and No hepatosplenomegaly present Auscultation: normal bowel sounds General: Yes no CVA tenderness Back/Spine/Pelvis Back: no CVA tenderness Skin General skin exam: elasticity normal, turgor normal and dry skin Neuro General: patient oriented x3 Psych Appearance: grossly normal Mental Status: mental status grossly normal Assessment & Plan Assessment & Plan (1) Celiac disease: Code(s): K90.0 - Celiac disease Category: Medical (2) Chronic abdominal pain: Code(s): R10.9 - Unspecified abdominal pain; G89.29 - Other chronic pain Category: Medical (3) Constipation: Code(s): K59.00 - Constipation, unspecified Qualifiers: Constipation type: slow transit constipation Qualified Code(s): K59.01 - Slow transit constipation (4) Melena: Code(s): K92.1 - Melena (5) Postprandial abdominal bloating: Code(s): R14.0 - Abdominal distension (gaseous) Plan Postprandial abdominal bloating most likely related to the food that he eats in not emptying his bowels completely. Continue free diet. Low FODMAP diet discussed with patient again list of food recommended as well as list of food to avoid given to patient. Patient was encouraged to get his blood work done today. Will send him for upper endoscopy, history of celiac epigastric pain postprandially patient will be also sent for colonoscopy even though he is not due he has experienced abdominal pain change in bowel pattern. Melena without hematochezia. What to expect before during and after procedure discussed patient. Stressed the importance of good bowel prep and clear liquid diet day before procedure. Patient denies any cardiac or respiratory symptoms. Not on any anticoagulation medication. No history of sleep apnea. I will see patient after the procedure, sooner on as needed basis. Patient is agreeable to current plan of care and verbalizes understanding of instructions. He was given the opportunity to ask questions and all questions answered. Thank you for allowing me to participate in his care Medications: New bisacodyl (Dulcolax (bisacodyl)) take 4 tabs at noon the day before your colonoscopy 20 mg (4 x 5 mg) PO ONCE 1 day 4 tabs 0RF Z12.11 - Encounter for screening for malignant neoplasm of colon polyethylene glycol 3350 (Miralax) As directed by gastroenterology department at [facility] 238 grams PO ONCE 238 grams 0RF Z12.11 - Encounter for screening for malignant neoplasm of colon Coding Level of Care Code Est Pt Level 4 (51895) Complex EM visit Add On G2211 Diagnoses Celiac disease K90.0 Chronic abdominal pain R10.9; G89.29 Slow transit constipation K59.01 Constipation type: slow transit constipation Melena K92.1 Postprandial abdominal bloating R14.0 Time Spent (min) 35 Comment 25 minutes spent with patient and additional 10 minutes spent reviewing records
[2024-03-05 08:11] VITALS: BP 140/86; PULSE 60; O2SAT 96; BMI 25.7
== END 2024-03-05 09:04 | disposition home or self-care (01) ==
PROVIDERS: PCP Nurse Practitioner Family; Visit Provider Nurse Practitioner Family
DX: K90.0 Celiac disease (principal); K92.1 Melena; R14.0 Abdominal distension (gaseous)
CPT/HCPCS: 99214

== ENCOUNTER 2024-03-05 07:42 | Outpatient (REF) | payer OTHER, SELFPAY ==
[2024-03-05 10:07] LABS: Alanine Aminotransferase 41 U/L (0-40); Albumin Level 3.9 g/dL (3.5-5.0); Alkaline Phosphatase 109 U/L (39-117); Anion Gap 11 (12-20); Aspartate Amino Transferase 26 U/L (5-37); Bilirubin Total 0.3 mg/dL (0.0-1.0); Blood Urea Nitrogen 14 mg/dL (9-16); Calcium 8.6 mg/dL (8.4-10.2); Carbon Dioxide 28 mmol/L (22-29); Chloride 107 mmol/L (96-108); Estimated Glomerular Filt Rate > 60; Glucose Random 95 mg/dL (60-115); Potassium 4.3 mmol/L (3.3-5.1); Sodium 142 mmol/L (135-145); Total Protein 6.7 g/dL (6.5-8.0)
[2024-03-05 10:23] LABS: TSH reflex Free T4 3.75 uIU/mL (0.32-4.0)
[2024-03-05 10:34] LABS: Folate 3.3 ng/mL (> or = 4.0); Vitamin B12 260 pg/mL (200-900)
[2024-03-08 20:09] LABS: Transglutaminase IgA 1.5 U/mL
[2024-03-10 12:53] LABS: Vitamin D 25-OH, D2 <4 ng/mL; Vitamin D 25-OH, D3 13 ng/mL; Vitamin D 25-OH, Total 13 ng/mL (30-100)
== END 2024-03-05 07:43 | disposition home or self-care (01) ==
LOC: HO.LAB 07:42
PROVIDERS: PCP Nurse Practitioner Family; Visit Provider Nurse Practitioner Family
DX: R10.9 Unspecified abdominal pain (principal); K90.0 Celiac disease; G89.29 Other chronic pain; E55.9 Vitamin D deficiency, unspecified
CPT/HCPCS: 36415; 80053; 82306; 82607; 82746; 84443; 86364

== ENCOUNTER 2024-03-09 12:48 | Outpatient (AMB) | payer OTHER, SELFPAY ==
--- NOTE | 2024-03-09 12:53 | A.OFFVIS_ITS ---
Vital Signs 03/09/24 12:56 Height 6 ft 1 in Weight 195 lb BMI 25.7 BP 139/99 H Blood Pressure Location Rt brachial Position Sitting Pulse 87 Intake Visit Reasons: ? cyst~ scalp Intake Note: Patient referred by Anil LU for scalp cyst. Present for over 10yrs. Patient c/o: enlarging. Opened once before. National Secretary Required: No Accompanied by: Self / Same As Patient Allergies No Known Allergies Allergy (Verified 03/09/24 12:54) HPI Comments Details: Patient presents with a vertex of scalp mass/cyst but he is had this several years time. His increasing in size, become more symptomatic. Like to have removed. He is no such lesions elsewhere. 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 All questions answered. Consent signed. After appropriate positioning, patient underwent 1% lidocaine and Betadine prep and longitudinal incision was made over the cyst which was uneventfully enucleated. Dimensions as described earlier. Specimen sent to pathology. Wound was irrigated, secured hemostasis, and closed using interrupted 2-0 Prolene sutures followed by bacitracin. Patient tolerated procedure well 27909-Xujtseyy scalp/neck/hands/feet/genitalia 3.1cm-4cm Procedure code (CPT) selection complete Office Meds lidocaine 1 %-epinephrine 1:100,000 injection solution Performing Provider: Edd Vann MD Performing Location: [facility] [place] General Surgeons Administered by: Edd Vann MD on 03/09/24 13:28 Dose Route Admin Location Dispensed Lot Number Expiration Date NDC Net Developer Consultant 10 mL Infiltration 10 mL Assessment & Plan Assessment & Plan (1) Pilar cyst of scalp: Code(s): L72.11 - Pilar cyst Category: Surgical Plan: Patient was been given local instructions including Tylenol or Motrin p.r.n. pain, ice periodically, bacitracin each day, may shower tomorrow, and he will see me as directed or p.r.n.. All questions answered. Orders: Orders AMB Excision Today L72.11 - Pilar cyst Medications: New lidocaine-epinephrine 1 %-1:100,000 10 mL Infiltration ONCE 30 mL 0RF L72.11 - Pilar cyst Coding Level of Care Code New Pt Level 5 (34006) Diagnoses Pilar cyst of scalp L72.11 CPT Codes Scalp/Neck/Hands/Feet/Genetalia - CPT: 11584-Tddvqfng scalp/neck/hands/feet/genitalia 3.1cm-4cm ([id number])
[2024-03-09 12:56] VITALS: BP 139/99; PULSE 87; BMI 25.7
== END 2024-03-09 13:25 | disposition home or self-care (01) ==
PROVIDERS: PCP Nurse Practitioner Family; Referring Provider Nurse Practitioner Family; Visit Provider Surgery
DX: L72.11 Pilar cyst (principal)
CPT/HCPCS: 11422; 99204

== ENCOUNTER 2024-03-09 12:48 | Outpatient (REF) | payer OTHER, SELFPAY | END 2024-03-09 12:49 | disposition home or self-care (01) | LOC: HO.LNP 12:48 | PROVIDERS: PCP Nurse Practitioner Family; Referring Provider Nurse Practitioner Family; Visit Provider Surgery | DX: L72.12 Trichodermal cyst (principal) | CPT/HCPCS: 11423; 11424; 88304 ==

== ENCOUNTER 2024-03-23 13:58 | Outpatient (AMB) | payer OTHER, SELFPAY ==
--- NOTE | 2024-03-23 13:58 | MHC.OFFVIS ---
Intake Visit Reasons: S/p exc scalp Intake Note: Patient here s/p cyst excision on Rt vertex scalp. Reports site healing well. Patient c/o: 3 sutures removed without incident. Excision: 03-09-2024 Exhaust And Muffler Repairer Required: No Accompanied by: Self / Same As Patient Allergies No Known Allergies Allergy (Verified 03/23/24 13:59) HPI Comments Details: Patient was in his for follow-up. No wound issues. Pathology is benign. 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 Sutures uneventfully removed. Assessment & Plan Assessment & Plan (1) Encounter for postoperative wound check: Code(s): Z48.89 - Encounter for other specified surgical aftercare Category: Surgical Plan Patient was been given local instructions, and will otherwise follow-up p.r.n.. All questions answered Coding Level of Care Code Global (04066) Diagnoses Encounter for postoperative wound check Z48.89
== END 2024-03-23 14:08 | disposition home or self-care (01) ==
PROVIDERS: PCP Nurse Practitioner Family; Visit Provider Surgery
DX: Z48.89 Encounter for other specified surgical aftercare (principal)
CPT/HCPCS: 99024

== ENCOUNTER 2024-04-02 11:13 | Outpatient (AMB) | payer OTHER, SELFPAY ==
[2024-04-02 11:17] VITALS: BP 132/90; PULSE 76; TEMP 36.4; O2SAT 99; BMI 25.3
--- NOTE | 2024-04-02 11:17 | MHC.OFFWIV ---
Intake Vital Signs 04/02/24 11:17 Height 6 ft 1 in Weight 192 lb BMI 25.3 BP 132/90 H Blood Pressure Location Rt brachial Position Sitting Pulse 76 Pulse Source Pulse Oximeter Temp 97.5 F Temp Source Oral Pulse Oximetry (%) 99 Intake Visit Reasons: EP irritated rt eye Intake Note: pt is here for right eye irritation Patient Tobacco Use Status: Never used Tobacco Accompanied by: Self / Same As Patient Allergies No Known Allergies Allergy (Verified 04/02/24 11:18) Do you need a note to return to daycare/school/sports/work: Yes HPI HPI Comments History of Present Illness Details 48 y/o male patient who presents to the walk in clinic with c/o right eye redness and itchy. Denies vision changes or eye pain. He does report some mild URI symptoms since yesterday. Denies injury or trauma. 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 Current occupational exposures/hazards: No Cognitive needs: No Hearing needs: No Vision needs: No Review of Systems Const All systems reviewed & are unremarkable except as noted in HPI and below Physical Exam Vital Signs: Last Vital Signs Temp 97.5 F 04/02/24 11:17 Pulse 76 04/02/24 11:17 BP 132/90 H 04/02/24 11:17 Pulse Ox 99 04/02/24 11:17 BMI result Body Mass Index 25.3 Const General: cooperative, comfortable and no acute distress Orientation/consciousness: patient oriented x3 HEENT Head: Yes normocephalic Ears: external ears normal and TM abnormal with fluid behind the TM Mouth: moist mucous membranes Eyes Eyelids: Yes eyelids normal Conjunctivae: conjunctival abnormal right conjunctival injection and discharge purulent Pupils: Equal, round and reactive pupils present EOM: EOMs intact bilaterally Resp Effort & Inspection: normal respiratory effort Auscultation: clear to auscultation bilaterally Cardio Heart sounds: S1 normal heart sound present and S2 normal heart sound present Neuro General: patient oriented x3 Cranial nerves: Yes Equal, round and reactive pupils present Assessment & Plan Assessment & Plan (1) Bacterial conjunctivitis: Code(s): H10.9 - Unspecified conjunctivitis Plan: Ordered Cipro eye Drops Keep eye clean and dry (2) Acute respiratory disease: Code(s): J06.9 - Acute upper respiratory infection, unspecified Plan: Ordered SARs. Orders: Orders SARS-CoV2/FLU/RSV Today J06.9 - Acute upper respiratory infection, unspecified Medications: New ciprofloxacin HCl 0.3% put 1-2 drps in affected eye(s) every 2hr up to 8 times/day x2days; then 4 times/day x5days ophthalmic (eye) 5 mL 0RF H10.9 - Unspecified conjunctivitis Coding Level of Care Code Est Pt Level 4 (58820) Diagnoses Bacterial conjunctivitis H10.9 Acute respiratory disease J06.9 Time Spent (min) 20
== END 2024-04-02 11:39 | disposition home or self-care (01) ==
PROVIDERS: PCP Nurse Practitioner Family; Visit Provider Nurse Practitioner Family
DX: H10.9 Unspecified conjunctivitis (principal); J06.9 Acute upper respiratory infection, unspecified

== ENCOUNTER 2024-04-02 11:13 | Outpatient (REF) | payer OTHER, SELFPAY | END 2024-04-02 11:14 | disposition home or self-care (01) | LOC: HO.LAB 11:13 | PROVIDERS: PCP Nurse Practitioner Family | DX: Z13.89 Encounter for screening for other disorder (principal) ==

== ENCOUNTER 2024-04-02 11:13 | Outpatient (REF) | payer OTHER, SELFPAY ==
[2024-04-02 15:37] LABS: Influenza A PCR NEGATIVE (Negative); Influenza B PCR NEGATIVE (Negative); Resp Syncy Virus RNA Qual PCR NEGATIVE (Negative); SARS COV2 PCR INHOUSE NEGATIVE (Negative)
== END 2024-04-02 11:14 | disposition home or self-care (01) ==
LOC: HO.LNP 11:13
PROVIDERS: Visit Provider Nurse Practitioner Family
DX: J06.9 Acute upper respiratory infection, unspecified (principal)
CPT/HCPCS: 0241U